=== PATIENT | female | born 1995 | race Caucasian/White ===

== ENCOUNTER 2021-08-14 18:21 | Emergency (ER) | payer SELFPAY ==
[2021-08-14] MEDS ORDERED: Bupivacaine PF 0.5% 30 ML VIAL ONE (18:41)
[2021-08-14] MEDS ORDERED: Lidocaine 1% w/Epinephrine 1:100K 20 ML VIAL ONE (18:41)
[2021-08-14] MEDS ORDERED: Amoxicillin/Potassium Clav 875 MG TAB ONE (19:03)
== END 2021-08-14 19:07 | disposition home or self-care (01) ==
LOC: MADERS 18:21
DX: K02.9 Dental caries, unspecified (principal)
CPT/HCPCS: 64400; S0020